=== PATIENT | female | born 1975 | race Caucasian/White ===

== ENCOUNTER 2016-07-21 13:35 | Emergency (ER) | payer OTHER ==
--- NOTE | 2016-07-21 15:58 | ED ORDER SUMMARY ---
..... Patient: FEROZ PAN OrderSheet [facility] VisitID: [id number] [address] [place] [address] 41y, F Registration Date/Time: 07/21/2016 ORDER SHEET Weight: 64.4 kg Allergies: Codeine GENERAL ORDERS: Hat Lining Blocker (Continuous) (possible syncope) (14:13 07/21/2016 García Rubalcava) (14:16 LNations ER Tech1) CBC w Diff Urgent (14:13 07/21/2016 García Rubalcava) (Ack 14:23 NHouse ER Tech1) (14:56 NHouse ER Tech1) CMP Urgent (14:13 07/21/2016 García Rubalcava) (Ack 14:23 NHouse ER Tech1) (14:56 NHouse ER Tech1) UA-Culture if indicated Urgent (14:13 07/21/2016 García Rubalcava) (14:15 Qi R.NOlivire) Urine Urgent (14:13 07/21/2016 García Rubalcava) (14:15 Qi R.NOlivier) Pulse oximeter (14:13 07/21/2016 García Rubalcava) (14:16 LNations ER Tech1) EKG - ER Stat (14:13 07/21/2016 García Rubalcava) (14:16 LNations ER Tech1) Seizure Precautions (14:13 07/21/2016 García Rubalcava) (15:30 Qi R.NOlivier) POC Glucose (14:13 07/21/2016 García Rubalcava) (14:16 LNations ER Tech1) MEDICATION ORDERS: IV FLUIDS: IV Saline Lock (14:13 07/21/2016 García Rubalcava) (15:11 Qi R.NOlivier) ORDER SHEET NOTES: [Electronically signed by Scott Pedroza R.N. (17:55 07/21/2016)] [Electronically signed by Sacha Osuna Dr. (17:50 07/26/2016)] [Electronically locked/signed by Scott Pedroza R.N. (17:55 07/21/2016)]
--- NOTE | 2016-07-21 15:58 | ED NURSING NOTES ---
Clinical Report - Nurses [facility] [address] [place] [address] 07/21/2016 13:38 Patient: FEROZ PAN TRIAGE Triage time 13:55 Jul 21 2016. Acuity: LEVEL 3. Chief Complaint: POSSIBLE SEIZURE. Alert. ROSALINA COMA SCORE: Rosalina Coma Scale: 15- eyes open spontaneously (4); best verbal response- oriented x 4 (5); best motor response- obeys commands (6). --14:14 Scott Pedroza R.N. 13:58 07/21/16. BP: 126/66. HR: 88. RR: 16. O2 saturation: 98%. Temp: 99.2 F. Pain level now: 0/10. --14:14 Scott Pedroza R.N. Weight: 64.4 kg. Height/Length: 61 inches Per Patient. BMI: 26.8. --14:01 Scott Pedroza R.N. Medications Ibuprofen Oral, PRN. --14:11 Scott Pedroza R.N. Benadryl Oral 25 mg, as needed (most recently took a couple a few days ago ). --14:12 Scott Pedroza R.N. Medication/allergy information source: the patient. --14:14 Scott Pedroza R.N. Allergies Codeine. Definite Moderate(itching, rash) --14:11 Scott Pedroza R.N. The following entry was struck and corrected by Scott Pedroza R.N., 14:13 (07/21/16) Reason for correction - other(correction). <<STRICKEN ENTRY-- Codeine. --14:11 Scott Pedroza R.N. --END STRIKE>>. History Arrived by private vehicle. Historian: patient. Accompanied by family. Primary physician (Elmer Hilario). ( Seizure-like activity where pt apparently had a LOC but never had a fall to the ground. Her boyfriend, who was with her, states that the pt had a similar episode a week ago.). This occurred (about 2 hours ago). Is no longer seizing. No injuries. ( Sinuses are congested). PAST MEDICAL HX: Seizures. Immunizations: up-to-date. The patient is post-menopausal. SOCIAL HX: History of drug use: marijuana. No infectious disease exposure. ABUSE ASSESSMENT: No report of abuse. FALL RISK ASSESSMENT: Fall risk assessment completed. No fall risk identified. NUTRITIONAL RISK ASSESSMENT: The nutritional risk assessment revealed no deficiencies. FUNCTIONAL ASSESSMENT: Functional assessment: no impairments noted. LEARNING NEEDS ASSESSMENT: The learning needs assessment revealed no barriers. SKIN INTEGRITY ASSESSMENT: Skin integrity risk assessment completed. No skin integrity risk identified. --14:14 Scott Pedroza R.N. PROBLEMS: Seizure. Contusion. Sinusitis. Otitis Media. Dental Pain. Cervical Strain. Myofascial Strain. Depression. Difficulty Walking. Acute Pain. Sprain. Tetanus Status. Last Tetanus. --14:01 Scott Pedroza R.N. ADDITIONAL SURGERIES: . Gland removed for cat scratch fever in groin. --14:01 Scott Pedroza R.N. Interventions ID band on patient. To treatment room. --14:14 Scott Pedroza R.N. PHYSICAL ASSESSMENT Ambulatory to room. GENERAL / NEURO / PSYCH: Alert. Oriented X 4. Speech within normal limits. Patient appears well-nourished. HEENT: No facial asymmetry noted. Mucous membranes are pink. RESPIRATORY: Respirations not labored. CVS: Normal sinus rhythm noted. GI / : Abdomen soft and nontender. SKIN: Skin intact. Skin is warm and dry. Normal skin turgor. --14:14 Scott Pedroza R.N. NURSING PROGRESS NOTES Patient gowned. Reassurance given. Patient identifiers checked. Call light placed in reach. Side rails up. Bed placed in lowest position. Brakes of bed on. Patient ready for evaluation- chart flagged and ED physician notified. --14:15 Scott Pedroza R.N. EKG time: (425). EKG was ordered, performed by a tech and shown to the ED physician. --14:30 Trang Lee ER Tech1 Finger stick glucose: 87. --14:30 Trang Lee ER Tech1 14:15 07/21/2016 Site #1 started via IV in the right forearm with an 20g angiocath, with aseptic technique and good blood return; one attempt. Blood drawn: rainbow set. Labeled in the presence of the patient and sent to the lab. Saline lock flushed with 10 mL saline. --15:11 Scott Pedroza R.N. 15:13 07/21/16. BP: 120/78. HR: 84. RR: 16. O2 saturation: 100% on room air. --15:14 Scott Pedroza R.N. DISPOSITION / DISCHARGE 16:00 07/21/16. BP: 108/69. HR: 84. RR: 17. O2 saturation: 99% on room air. Pain level now: 0/10. --17:50 Scott Pedroza R.N. Departure time: 1605. --17:50 Scott Pedroza R.N. 16:05. Condition at departure: improved. No learning barriers present. Discharge instructions provided and reviewed with the patient. Reviewed medication(s). Reviewed referral to a neurologist and family practice for followup. Patient verbalized understanding. Written instructions provided in [place]ican. The patient was discharged by the physician. She was discharged home and accompanied by humanities division chair. She left the Emergency Department ambulatory and via private vehicle. Stretch Machine Operator driving. --17:52 Scott Pedroza R.N. 16:00 07/21/16. Temp: 99 F. --17:54 Scott Pedroza R.N. Locked/Released at 07/21/2016 17:55 by Scott Pedroza R.N.
--- NOTE | 2016-07-21 15:58 | ED NURSING NOTES ---
Clinical Report - Nurses [facility] [address] [place] [address] 07/21/2016 13:38 Patient: FEROZ PAN TRIAGE Triage time 13:55 Jul 21 2016. Acuity: LEVEL 3. Chief Complaint: POSSIBLE SEIZURE. Alert. ROSALINA COMA SCORE: Rosalina Coma Scale: 15- eyes open spontaneously (4); best verbal response- oriented x 4 (5); best motor response- obeys commands (6). --14:14 Scott Pedroza R.N. 13:58 07/21/16. BP: 126/66. HR: 88. RR: 16. O2 saturation: 98%. Temp: 99.2 F. Pain level now: 0/10. --14:14 Scott Pedroza R.N. Weight: 64.4 kg. Height/Length: 61 inches Per Patient. BMI: 26.8. --14:01 Scott Pedroza R.N. Medications Ibuprofen Oral, PRN. --14:11 Scott Pedroza R.N. Benadryl Oral 25 mg, as needed (most recently took a couple a few days ago ). --14:12 Scott Pedroza R.N. Medication/allergy information source: the patient. --14:14 Scott Pedroza R.N. Allergies Codeine. Definite Moderate(itching, rash) --14:11 Scott Pedroza R.N. The following entry was struck and corrected by Scott Pedroza R.N., 14:13 (07/21/16) Reason for correction - other(correction). <<STRICKEN ENTRY-- Codeine. --14:11 Scott Pedroza R.N. --END STRIKE>>. History Arrived by private vehicle. Historian: patient. Accompanied by family. Primary physician (Elmer Hilario). ( Seizure-like activity where pt apparently had a LOC but never had a fall to the ground. Her boyfriend, who was with her, states that the pt had a similar episode a week ago.). This occurred (about 2 hours ago). Is no longer seizing. No injuries. ( Sinuses are congested). PAST MEDICAL HX: Seizures. Immunizations: up-to-date. The patient is post-menopausal. SOCIAL HX: History of drug use: marijuana. No infectious disease exposure. ABUSE ASSESSMENT: No report of abuse. FALL RISK ASSESSMENT: Fall risk assessment completed. No fall risk identified. NUTRITIONAL RISK ASSESSMENT: The nutritional risk assessment revealed no deficiencies. FUNCTIONAL ASSESSMENT: Functional assessment: no impairments noted. LEARNING NEEDS ASSESSMENT: The learning needs assessment revealed no barriers. SKIN INTEGRITY ASSESSMENT: Skin integrity risk assessment completed. No skin integrity risk identified. --14:14 Scott Pedroza R.N. PROBLEMS: Seizure. Contusion. Sinusitis. Otitis Media. Dental Pain. Cervical Strain. Myofascial Strain. Depression. Difficulty Walking. Acute Pain. Sprain. Tetanus Status. Last Tetanus. --14:01 Scott Pedroza R.N. ADDITIONAL SURGERIES: . Gland removed for cat scratch fever in groin. --14:01 Scott Pedroza R.N. Interventions ID band on patient. To treatment room. --14:14 Scott Pedroza R.N. PHYSICAL ASSESSMENT Ambulatory to room. GENERAL / NEURO / PSYCH: Alert. Oriented X 4. Speech within normal limits. Patient appears well-nourished. HEENT: No facial asymmetry noted. Mucous membranes are pink. RESPIRATORY: Respirations not labored. CVS: Normal sinus rhythm noted. GI / : Abdomen soft and nontender. SKIN: Skin intact. Skin is warm and dry. Normal skin turgor. --14:14 Scott Pedroza R.N. NURSING PROGRESS NOTES Patient gowned. Reassurance given. Patient identifiers checked. Call light placed in reach. Side rails up. Bed placed in lowest position. Brakes of bed on. Patient ready for evaluation- chart flagged and ED physician notified. --14:15 Scott Pedroza R.N. EKG time: (425). EKG was ordered, performed by a tech and shown to the ED physician. --14:30 Trang Lee ER Tech1 Finger stick glucose: 87. --14:30 Trang Lee ER Tech1 14:15 07/21/2016 Site #1 started via IV in the right forearm with an 20g angiocath, with aseptic technique and good blood return; one attempt. Blood drawn: rainbow set. Labeled in the presence of the patient and sent to the lab. Saline lock flushed with 10 mL saline. --15:11 Scott Pedroza R.N. 15:13 07/21/16. BP: 120/78. HR: 84. RR: 16. O2 saturation: 100% on room air. --15:14 Scott Pedroza R.N. DISPOSITION / DISCHARGE 16:00 07/21/16. BP: 108/69. HR: 84. RR: 17. O2 saturation: 99% on room air. Pain level now: 0/10. --17:50 Scott Pedroza R.N. Departure time: 1605. --17:50 Scott Pedroza R.N. 16:05. Condition at departure: improved. No learning barriers present. Discharge instructions provided and reviewed with the patient. Reviewed medication(s). Reviewed referral to a neurologist and family practice for followup. Patient verbalized understanding. Written instructions provided in [place]. The patient was discharged by the physician. She was discharged home and accompanied by non destructive evaluation specialist. She left the Emergency Department ambulatory and via private vehicle. Hollow Ware Maker driving. --17:52 Scott Pedroza R.N. 16:00 07/21/16. Temp: 99 F. --17:54 Scott Pedroza R.N. Locked/Released at 07/21/2016 17:55 by Scott Pedroza R.N.
--- NOTE | 2016-07-21 15:58 | ED ORDER SUMMARY ---
..... Patient: FEROZ PAN OrderSheet [facility] VisitID: [id number] [address] [place] [address] 41y, F Registration Date/Time: 07/21/2016 ORDER SHEET Weight: 64.4 kg Allergies: Codeine GENERAL ORDERS: Edi Consultant (Continuous) (possible syncope) (14:13 07/21/2016 García Rubalcava) (14:16 LNations ER Tech1) CBC w Diff Urgent (14:13 07/21/2016 García Rubalcava) (Ack 14:23 NHouse ER Tech1) (14:56 NHouse ER Tech1) CMP Urgent (14:13 07/21/2016 García Rubalcava) (Ack 14:23 NHouse ER Tech1) (14:56 NHouse ER Tech1) UA-Culture if indicated Urgent (14:13 07/21/2016 García Rubalcava) (14:15 Qi R.NOlivier) Urine Urgent (14:13 07/21/2016 García Rubalcava) (14:15 Qi R.NOlivier) Pulse oximeter (14:13 07/21/2016 García Rubalcava) (14:16 LNations ER Tech1) EKG - ER Stat (14:13 07/21/2016 García Rubalcava) (14:16 LNations ER Tech1) Seizure Precautions (14:13 07/21/2016 García Rubalcava) (15:30 Qi R.NOlivier) POC Glucose (14:13 07/21/2016 García Rubalcava) (14:16 LNations ER Tech1) MEDICATION ORDERS: IV FLUIDS: IV Saline Lock (14:13 07/21/2016 García Rubalcava) (15:11 Qi R.NOlivier) ORDER SHEET NOTES: [Electronically signed by Scott Pedroza R.N. (17:55 07/21/2016)] [Electronically signed by Sacha Osuna Dr. (17:50 07/26/2016)] [Electronically locked/signed by Scott Pedroza R.N. (17:55 07/21/2016)]
--- NOTE | 2016-07-21 15:58 | ED CLINICAL REPORT ---
Clinical Report - Physicians/Mid Levels [facility] [address] [place] [address] 07/21/2016 13:38 Patient: FEROZ PAN Arrived- By private vehicle. Historian- patient. HISTORY OF PRESENT ILLNESS Chief Complaint: PASSED OUT. 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 This occurred today. Is no longer seizing. She has recovered. Post-ictal in the emergency department (sleepy). Seizure was witnessed. Did not have a single isolated seizure or experience repeated seizures. Seizure activity was brief and lasted seconds. The patient lost consciousness. No focal motor activity, incontinence or apnea noted. Post-ictally has been obtunded. Did not lose pulse. No post-ictal symptoms. No injuries noted. Did not recently change anticonvulsant medication. Similar symptoms previously: (as a child. not prescribed meds.). Recent medical care: Not recently seen/assessed. REVIEW OF SYSTEMS No fever, chest pain, cough or skin rash. All systems otherwise negative, except as recorded above. PAST HISTORY See nurses notes. Medications: Benadryl Oral 25 mg, as needed (most recently took a couple a few days ago ). Ibuprofen Oral, PRN. Allergies: Codeine. Definite Moderate(itching, rash). SOCIAL HISTORY Never smoker. History of occasional drug use: marijuana. No alcohol use. Is a local resident. ADDITIONAL NOTES The nursing notes have been reviewed. PHYSICAL EXAM Vital Signs: 07/21/2016 13:58 BP: 126/66. HR: 88. RR: 16. O2 saturation: 98%. Temp: 99.2 F. Pain level now: 0/10. Blood pressure normal. Oxygen saturation normal. Appearance: No acute distress. (mild sleepy). Eyes: Pupils equal, round and reactive to light. No nystagmus. Extraocular movements normal. ENT: Normal ENT inspection. TM's normal. Moist mucous membranes. Pharynx normal. Neck: Normal inspection. Neck supple. No meningeal signs. CVS: Normal heart rate and rhythm. Heart sounds normal. Pulses normal. Respiratory: No respiratory distress. Breath sounds normal. Abdomen: Soft and nontender. No organomegaly. Back: Normal inspection. Skin: Skin warm and dry. Normal skin color. No rash. Normal skin turgor. Extremities: Extremities exhibit normal ROM. No lower extremity edema. Neuro: Alert. Oriented X 3. Mood/affect normal. Speech normal. Cranial nerves normal (as tested). No cerebellar findings. No motor deficit. No sensory deficit. Reflexes normal. LABS, X-RAYS, AND EKG Laboratory Tests: UA-Culture if indicated: (MARCIA: 07/21/2016 13:55) ( [facility] 07/21/2016 14:26) Final results Test Result Flag Units (Reference) URINE COLOR YELLOW URINE APPEARANCE CLEAR URINE GLUCOSE NEGATIVE (NEGATIVE) URINE BILIRUBIN NEGATIVE (NEGATIVE) URINE KETONE NEGATIVE (NEGATIVE) URINE SPECIFIC GRAVITY 1.020 (1.010-1.030) URINE PH 6.0 (5.0-8.0) URINE PROTEIN NEGATIVE (NEGATIVE) URINE UROBILINOGEN 0.2 EU/dL (0.2-1.0) URINE NITRITE NEGATIVE (NEGATIVE) URINE BLOOD NEGATIVE (NEGATIVE) URINE LEUK ESTERASE TRACE (NEGATIVE) URINE RBC 0-1 rbc/hpf (0-1) URINE WBC 5-10 wbc/hpf (0-1) URINE EPITHELIAL CELLS 3-5 EPI/hpf (0-5) URINE BACTERIA FEW (1+) (NONE SEEN) URINE COMMENT CULTURE INDICATED URINE CULTURES ARE SET-UP BASED ON THE FOLLOWING CRITERIA:POSITIVE NITRITEPOSITIVE LEUKOCYTE ESTERASEGREATER THAN 10 WHITE BLOOD CELLSMODERATE (2+) OR GREATER BACTERIA Urine: (MARCIA: 07/21/2016 13:55) ( [facility] 07/21/2016 14:20) Final results Test Result Flag Units (Reference) URINE NEGATIVE CBC w Diff: (MARCIA: 07/21/2016 14:15) ( [facility] 07/21/2016 14:42) Final results Test Result Flag Units (Reference) WHITE BLOOD COUNT 6.3 K/uL (4.5-11.5) RED BLOOD COUNT 3.73 L M/uL (4.00-5.20) HEMOGLOBIN 10.4 L gm/dL (12.0-16.0) HEMATOCRIT 31.3 L % (36.0-46.0) MEAN CELL VOLUME 84 fL (80-100) MEAN CORPUSCULAR HGB 28 pg (26-34) MEAN CORPUSCULAR HGB CONC 33 g/dL (31-37) RED CELL DISTRIBUTION WIDTH 16.3 H % (11.6-14.8) PLATELET COUNT 344 K/uL (150-400) NEUTROPHIL % 65.0 % (50-75) LYMPH % 25.7 % (25-40) MONO % 7.5 % (3-14) EOSINOPHIL % 1.2 % (0-4) BASOPHIL % 0.6 % (0-2) CMP: (MARCIA: 07/21/2016 14:15) ( MsgRcvd 07/21/2016 14:52) Final results Test Result Flag Units (Reference) GLUCOSE 90 mg/dL (70-110) BUN 14 mg/dL (7-18) CREATININE 0.6 mg/dL (0.6-1.3) Estimated GFR >60 mL/min Estimated GFR- >60 mL/min Note: Persistent reduction over 3 months in eGFR<60 mL/min/1.73 m2 defines CKD. Patients with eGFR values>=60 mL/min/1.73 m2 may also have CKD if evidence ofpersistent proteinuria. Additional information may be foundat www.kidney.org. SODIUM 136 mmol/L (136-145) POTASSIUM 4.0 mmol/L (3.5-5.1) CHLORIDE 102 mmol/L (98-107) CARBON DIOXIDE 24 mmol/L (21-32) CALCIUM 8.7 mg/dL (8.5-10.1) TOTAL PROTEIN 7.4 g/dL (6.4-8.2) ALBUMIN 3.7 g/dL (3.3-5.0) BILIRUBIN, TOTAL 0.3 mg/dL (0.0-1.0) ALKALINE PHOSPHATASE 46 U/L (46-116) AST (SGOT) 30 U/L (15-37) ALT (SGPT) 39 U/L (12-78) . Lab Tests Pending: Urinalysis. (culture). PROGRESS AND PROCEDURES Course of Care: he patient is a pleasant 41-year-old female presenting for evaluation of seizure-like event. Patient was apparently standing and became unresponsive. Patient works having similar symptoms to this as a child. Patient portion other symptoms at this time. Patient appears to be slightly postictal. Laboratory studies will be evaluated for anyelectrolyte abnormalities causing the patient to having her current symptoms. Patient appears nontoxic. Do not feel patient has meningitis or sepsis at this time. Patient is agreeable to the treatment plan. While here in the emergency department, the patient has recoveredwithoutincident. Patient continues to be free from further episodes as described earlier today. Workup does not show any acute other maladies. Because of the patient's past history, seizure is likely. Patient's past medical history is reviewed. Patient has an unremarkable CT scan recently without acute other acute abnormalities. Did offer patient is admitted to the hospital or require further emergency department workup/evaluation. Repeat examination continues to be nonfocal and unremarkable. Discussed the patient workup, diagnosis, home care, follow-up, and return precautions. All questions answered. The patient expressed understanding of these instructions and was agreeable to them. CLINICAL IMPRESSION 07/21/2016 15:13 BP: 120/78. HR: 84. RR: 16. O2 saturation: 100%. Blood pressure normal. Oxygen saturation normal. Seizure of unknown cause, (acute petite mal). INSTRUCTIONS No driving or operating machinery (no taking a bath or swimming until cleared by your doctor). Warnings: GENERAL WARNINGS: Return or contact your physician immediately if your condition worsens or changes unexpectedly, if not improving as expected, or if other problems arise. Specifically return if pain, vomiting, bleeding, breathing difficulty or fever. Your Current Medications: CONTINUE TAKING THE FOLLOWING MEDICATIONS: Benadryl Oral : 25 mg, prn, most recently took a couple a few days ago. Ibuprofen Oral : PRN. Follow-up: Return to the emergency department as needed. Follow up with a specialist Your neurologist in one week. Reason for referral: recheck today's concerns. Summary of care provided to patient via paper. Follow up with your doctor in three. Reason for referral: recheck today's concerns. Summary of care provided to patient via paper. Screening today revealed the patient's blood pressure to be in the normal range. The patient should follow up with a primary care provider for blood pressure management. Understanding of the discharge instructions verbalized by patient. (Electronically signed by Sacha Osuna Dr. 07/26/2016 17:50)
--- NOTE | 2016-07-26 17:50 | ED MED RECONCILIATION SUMMARY ---
Patient: FOZIA PANINA [place] Medication Reconciliation Report [facility] VisitID: [id number] [address] [place] [address] 41y, F Registration Date/Time: 07/21/2016 Weight: 64.4 kg Height/Length: 61 in. BMI: 26.8 ALLERGIES: Codeine The patient's Home Medications are listed below: CONTINUE TAKING THE FOLLOWING MEDICATIONS: Benadryl Oral 25 mg, most recently took a couple a few days ago Ibuprofen Oral, PRN The source(s) of the original Home Medication information: patient The following Medications were given to the patient in the Emergency Department: None. The following Medications were prescribed to the patient: None.
--- NOTE | 2016-07-26 17:50 | ED MED RECONCILIATION SUMMARY ---
Patient: FOZIA PANINA [place] Medication Reconciliation Report [facility] VisitID: [id number] [address] [place] [address] 41y, F Registration Date/Time: 07/21/2016 Weight: 64.4 kg Height/Length: 61 in. BMI: 26.8 ALLERGIES: Codeine The patient's Home Medications are listed below: CONTINUE TAKING THE FOLLOWING MEDICATIONS: Benadryl Oral 25 mg, most recently took a couple a few days ago Ibuprofen Oral, PRN The source(s) of the original Home Medication information: patient The following Medications were given to the patient in the Emergency Department: None. The following Medications were prescribed to the patient: None.
--- NOTE | 2016-07-26 17:50 | ED MAR SUMMARY ---
..... Medication Administration Record [facility] [address] [place], [place] [id number] Patient: FEROZ PAN [place] Visit ID: [id number] 41y, F Weight: 64.4 kg Height/Length: 61 in BMI: 26.8 ALLERGIES: Codeine
--- NOTE | 2016-07-26 17:50 | ED DISCHARGE INSTRUCTIONS ---
Patient: FEROZ PAN General Instructions [facility] VisitID: [id number] [address] [place] [address] 41y, F Registration Date/Time: 07/21/2016 07/21/2016 15:13 BP: 120/78. HR: 84. RR: 16. O2 saturation: 100%. Blood pressure normal. Oxygen saturation normal. Seizure of unknown cause, (acute petite mal). INSTRUCTIONS No driving or operating machinery (no taking a bath or swimming until cleared by your doctor). Warnings: GENERAL WARNINGS: Return or contact your physician immediately if your condition worsens or changes unexpectedly, if not improving as expected, or if other problems arise. Specifically return if pain, vomiting, bleeding, breathing difficulty or fever. Your Current Medications: CONTINUE TAKING THE FOLLOWING MEDICATIONS: Benadryl Oral : 25 mg, prn, most recently took a couple a few days ago. Ibuprofen Oral : PRN. Follow-up: Return to the emergency department as needed. Follow up with a specialist Your neurologist in one week. Reason for referral: recheck today's concerns. Summary of care provided to patient via paper. Follow up with your doctor in three. Reason for referral: recheck today's concerns. Summary of care provided to patient via paper. Screening today revealed the patient's blood pressure to be in the normal range. The patient should follow up with a primary care provider for blood pressure management. Understanding of the discharge instructions verbalized by patient. ADDITIONAL INFORMATION Recurrent Seizure [Adult] You have had another seizure today. A common cause of recurrent seizure is missing doses of the seizure medicine. However, sometimes seizures are difficult to control even when you take the medicine correctly. If this is the case for you, it may be necessary to increase your dosage or add or change to another medicine. Home Care: For This Seizure: Since seizures are not predictable, you must avoid doing anything that might cause danger to you or others if you have another one. Therefore, until the seizures are under good control, take these precautions: Do not drive a car, bicycle or motorcycle Do not operate dangerous equipment such as power tools Use a shower instead of a bath Do not swim or climb (ladders, trees, roofs) Tell your close friends and relatives about your seizure and teach them what to do for you if it happens again. If you were prescribed a medicine to prevent seizures, take it exactly as directed. It does not work when taken on an "as needed" basis. Missing doses will increase the risk of having another seizure. If you miss a dose, take the missed dose as soon as you remember. If it is almost time for your next dose, skip the missed dose. Restart the medicine at your next scheduled time. Do not take extra medicine to make up the missed dose. Wear a "Medic-Alert" bracelet to advise emergency personnel of your condition. For Future Seizures: If You Are Alone: If you feel a seizure coming on, the best thing to do is to lie down on a bed or on the floor. Lie on your side, not on your back. This will prevent falling, promote drainage of oral secretions out of the mouth and prevent choking. Be sure that you are clear of any objects that might injure you during the seizure. Call for help if there is time. If Someone Is With You: If someone is with you before the seizure, they should help you get in a safe position and call for help. They should not try to force anything in your mouth once the seizure has begun. Doing this may cause injury. Follow Up with your doctor, or as directed by our staff. NOTE: For the safety of yourself and others on the road, certain states require that the treating doctor inform the Public Health Department of any adult who is treated for a seizure and is at risk of further seizures. In this case, the Department of Motor Vehicles (DMV) will be notified and a restriction will be placed on your drivers license until a doctor gives you medical clearance to drive again. Contact your treating doctor to find out if your state requires the reporting of patients with a seizures condition. Get Prompt Medical Attention if any of the following occur: Seizures occurring more often or becoming longer than usual Seizure lasting over 5 minutes No wake-up between seizures Remaining confused for more than 30 minutes after a seizure Injury during a seizure Fever over 100.4F (38.0C) Unusual irritability, drowsiness or confusion Stiff or painful neck Worsening headache You have been given the following additional information: Seizure, Recurrent [Adult] No driving or operating machinery (no taking a bath or swimming until cleared by your doctor). (Electronically signed by Sacha Osuna Dr. 07/26/2016 17:50)
--- NOTE | 2016-07-26 17:50 | ED MAR SUMMARY ---
..... Medication Administration Record [facility] [address] [place], [place] [id number] Patient: FEROZ PAN [place] Visit ID: [id number] 41y, F Weight: 64.4 kg Height/Length: 61 in BMI: 26.8 ALLERGIES: Codeine
== END 2016-07-21 16:05 | disposition home or self-care (01) ==
LOC: ED SRH 13:35
DX: G40.409 Other generalized epilepsy and epileptic syndromes, not intractable, without status epilepticus (principal)
CPT/HCPCS: 90004; 90100; 90469; 93070; 95059